=== PATIENT | female | born 1965 | race Two or more races ===

== ENCOUNTER 2019-07-31 11:10 | Emergency (ER) | payer MEDICAID ==
[~2019-07-31] VITALS: Ht 160 cm; Wt 59.4 kg
[2019-07-31 11:23] VITALS: BP 121/72
[2019-07-31] MEDS ORDERED: IBUPROFEN 200 MG TABLET ONE (11:56)
[2019-07-31] MEDS ORDERED: IBUPROFEN 200 MG TABLET PO ONE (12:00)
[2019-07-31] MEDS ORDERED: LIDOCAINE-MPF 1%, 5ML ONE (12:43)
[2019-07-31] MEDS ORDERED: LIDOCAINE-MPF 1%, 5ML INFIL ONE (13:00)
== END 2019-07-31 14:06 | disposition home or self-care (01) ==
LOC: ED 12:23
DX: S63.124A Dislocation of interphalangeal joint of right thumb, initial encounter (principal); W01.0XXA Fall on same level from slipping, tripping and stumbling without subsequent striking against object, initial encounter; Y93.89 Activity, other specified; Y92.031 Bathroom in apartment as the place of occurrence of the external cause; Y99.8 Other external cause status
CPT/HCPCS: 26770; 99284